=== PATIENT | male | born 1950 | race Caucasian/White ===

== ENCOUNTER → 2020-10-08 12:46 | Outpatient (BNVA) | payer SELFPAY | PROVIDERS: Family Provider Family Medicine; PCP Family Medicine; Visit Provider Internal Medicine Critical Care Medicine | DX: J44.9 Chronic obstructive pulmonary disease, unspecified (principal); F17.200 Nicotine dependence, unspecified, uncomplicated | CPT/HCPCS: 71046 ==

== ENCOUNTER → 2020-10-24 10:55 | Outpatient (BNVA) | payer SELFPAY | PROVIDERS: Family Provider Family Medicine; PCP Family Medicine; Visit Provider Internal Medicine Critical Care Medicine | DX: Z20.822 Contact with and (suspected) exposure to COVID-19 (principal); J44.9 Chronic obstructive pulmonary disease, unspecified | CPT/HCPCS: 87635 ==

== ENCOUNTER → 2021-12-17 12:40 | Outpatient (BNVA) | payer OTHER, SELFPAY | PROVIDERS: Family Provider Family Medicine; PCP Family Medicine; Visit Provider Internal Medicine Critical Care Medicine | DX: J44.9 Chronic obstructive pulmonary disease, unspecified (principal); R91.1 Solitary pulmonary nodule; F17.210 Nicotine dependence, cigarettes, uncomplicated | CPT/HCPCS: 99214 ==

== ENCOUNTER → 2022-05-12 10:07 | Outpatient (BNVA) | payer OTHER, SELFPAY | PROVIDERS: Family Provider Family Medicine; PCP Family Medicine; Visit Provider Internal Medicine Cardiovascular Disease | DX: R06.02 Shortness of breath (principal); J44.9 Chronic obstructive pulmonary disease, unspecified; N40.0 Benign prostatic hyperplasia without lower urinary tract symptoms; F17.210 Nicotine dependence, cigarettes, uncomplicated | CPT/HCPCS: 93005; 99204; Q3014 ==

== ENCOUNTER 2022-06-19 05:30 | Outpatient (CLI) | payer OTHER, SELFPAY ==
--- NOTE | 2022-06-19 | PETR_ITS ---
PROCEDURE INFORMATION: Exam: PET/CT Skull Base to Mid-thigh Exam date and time: 06/19/2022 10:23 AM Age: 72 years old Clinical indication: Abnormal findings of lung field LABS AND CLINICAL REPORTS: Glucose: 95 mg/dl Treatment strategy for malignancy (PET staging): Initial Staging (PI) TECHNIQUE: Imaging protocol: Following at least four-hour fasting and following the injection of F-18-FDG, low dose CT images were obtained. Then, PET images were obtained. Attenuation corrected images were constructed using the CT scan. Fused images of PET and CT were reviewed. The standardized uptake values (SUV) reported below are maximum values within a region of interest, expressed in gm/ml. Exam includes orbital meatal line to mid-thigh. Radiopharmaceutical: 11.43 mCi F-18 FDG (Fluorodeoxyglucose), IV. Time of imaging post radiopharmaceutical administration: 1 hour Injection site: Left antecubital COMPARISON: CR XR chest 2V* [id number] 10/08/2020 12:56 PM FINDINGS: Limitations: Motion artifact. Brain: Visualized brain has normal physiologic uptake. Salivary glands: Mild asymmetric uptake in the region of the inferior left parotid gland is noted without evidence of a discrete lesion, SUV max 4.9. Pharynx: Uptake within adenoidal tissue is elevated, SUV max 8.0, associated with mild prominence of the adenoidal tissue. Larynx: Physiologic appearing uptake within the region of the vocal cords. Lungs, pleura and trachea: Non radiotracer avid regions of streaky and mild patchy density in the posteroinferior right lower lobe is noted. A non radiotracer avid solid appearing lateral right lower lobe nodule measuring 6 mm on series 3, image 85 is noted. No definite additional nodules, with limitations of motion artifact.Mild moderate bilateral centrilobular emphysematous changes are present. Heart: Normal physiologic uptake. Mediastinal space: No abnormal uptake. Liver: No abnormal uptake. Gallbladder and bile ducts: No abnormal uptake. Pancreas: No abnormal uptake. Spleen: No abnormal uptake. Adrenal glands: No abnormal uptake. Kidneys and ureters: Normal physiologic uptake. A non radiotracer avid low-density lesion in the right renal inferior pole measures 1.2 cm on series 3, image 108, statistically consistent with a simple cyst. Stomach and bowel: There is elevated uptake in the region of the rectum, SUV max 4.7, likely physiologic. Reproductive: Moderate prominence of the prostate gland without elevated uptake. Mildly diffusely elevated testicular uptake, SUV max 4.6 on the right and 4.4 on the left. Vasculature: No abnormal uptake. There are diffuse atherosclerotic changes. Lymph nodes: A precarinal lymph node measuring 1.9 x 0.9 cm on series 3, image 61 demonstrates low-level activity, SUV max 2.7. A small focus of uptake in the right hilar region within a 9 mm lymph node is identified on PET series 4, image 63, SUV max 3.3. Bones/joints: No abnormal uptake in the visualized axial and appendicular skeleton. A mild non radiotracer avid compression fracture of T12 appears chronic. Soft tissues: Benign-appearing elevated uptake within the musculature of the anterior aspect of the cervical spine is noted without correlating lesions on the CT images. METRICS: Mediastinal blood pool: SUV max 1.8 Liver uptake: SUV max 2.2 PET/PET skulltothi INITIAL [id number] IMPRESSION: 1. Mild streaky density in the right lower lobe is consistent with atelectasis or scarring. A 6 mm nodular density is also noted without elevated uptake which favors a benign etiology. Assessment of small nodules can be limited by PET-CT. 2. Elevated uptake in the left parotid gland and within adenoidal tissue is noted, likely physiologic or related to infectious or inflammatory changes. 3. Mild uptake within a precarinal lymph node (SUV max 2.7) and a right hilar lymph node (SUV max 3.3) is noted which may be related to inflammatory or infectious involvement. A neoplastic etiology cannot be excluded. 4. Mildly elevated uptake in the testes is diffuse which may be related to orchitis. A neoplastic etiology is not favored. 5. Simple appearing right renal cyst. 6. Additional nonurgent findings as detailed above.
== END 2022-06-19 05:31 | disposition home or self-care (01) ==
LOC: RAD 06-21 05:31
PROVIDERS: PCP Family Medicine; Visit Provider Family Medicine
DX: R91.8 Other nonspecific abnormal finding of lung field (principal)
CPT/HCPCS: 78815; A9552

== ENCOUNTER 2022-07-09 08:26 | Outpatient (CLI) | payer OTHER, SELFPAY ==
[2022-07-09 09:19] VITALS: BMI 20.7
--- NOTE | 2022-07-09 09:24 | PC.NURSE ---
pt admitted to to having a couple sips of coffee this am. nurse informed pt to the possibility of not being able to complete test today due to not having the option to switch to lexiscan if pt does not hit target HR on treadmill. he acknolwdged understanding and stated he was here, might as well try
--- NOTE | 2022-07-09 10:47 | PC.NURSE ---
target not able to hit target HR. refer to previous note regarding why the test wasn't changed to lexsiscan. Dr alcaraz will be notified of situation and will follow up with pt.
--- NOTE | 2022-07-09 10:49 | PC.NURSE ---
pt stated the reason for stopping the test was due to the excessive sob and leg weakness.
== END 2022-07-09 08:27 | disposition home or self-care (01) ==
LOC: CDL 08:28
PROVIDERS: PCP Family Medicine; Visit Provider Internal Medicine Cardiovascular Disease
DX: R06.02 Shortness of breath (principal)
CPT/HCPCS: 36415

== ENCOUNTER 2022-09-20 06:44 | Outpatient (CLI) | payer OTHER, SELFPAY ==
[2022-09-20 06:48] VITALS: BMI 19.8
--- NOTE | 2022-09-20 07:47 | NMCV_ITS ---
NM al perf SPECT r/s* [id number] Star Rodríguez Age: 72 Gender: M : 1950 Exam Date: 09/20/2022 07:47 Ordering Phys: Saadia Castillo MD ([email or web address]) Technologist: BLANCHE Escobedo Exam Location: [facility] Indications: SHORTNESS OF BREATH STRESS TEST Please see separate stress test report in [facility] for full findings IMAGE PROTOCOL Rest/Stress 1 Lexiscan Day Radiopharmaceutical Dose (mCi) Administration Site Administered by Rest: Tc-99m 10.6 IV BLANCHE Holman Sestamibi Stress:Tc-99m 32.5 IV BLANCHE Holman Sestamibi Rest: 20-Sep-2022 60 Discovery 630 Stress: 20-Sep-2022 30 Discovery 630 0.4mg Lexiscan. Images obtained in supine and prone position. SPECT RESULTS Technical Quality: Excellent Raw Data Analysis: Normal Image Corrections: No attenuation or motion correction applied Summed Stress Score: 0 Summed Rest Score: 5 Summed Difference Score: 0 PERFUSION FINDINGS SPECT images demonstrate homogeneous tracer distribution throughout the myocardium on stress images. FUNCTIONAL RESULTS (calculated via Gated SPECT) Stress Image LV EF (%): 63 Stress EDV (mL):104 TID: 0.92 Stress ESV (mL):38 FUNCTIONAL FINDINGS: The left ventricle is normal in size. Transient Ischemia Dilatation of 0.92. The left ventricular ejection fraction is normal with a value of 63%. There is normal left ventricular wall thickening. IMPRESSIONS 1. Myocardial perfusion imaging is normal. Attenuation artifact noted in septal wall. 2. Overall left ventricular systolic function is normal without regional wall motion abnormalities, LVEF=63%. 3. No EKG changes with Lexiscan infusion. 4. Scan indicates low risk for cardiac events. Saadia Castillo MD (Electronically Signed) Final Date: 21 September 2022 12:41 S
--- NOTE | 2022-09-20 07:47 | ECG_ITS ---
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 Interpretive Statements NAME OF STUDY: LEXISCAN SESTAMIBI STRESS TEST INDICATION: Exertional shortness of Breath PROCEDURE: At the baseline, the blood pressure was 151/75mmHg with a heart rate of 52 bpm. The electrocardiogram showed sinus bradycardia, normal axis with possible old septal infarct. The Lexiscan was infused over a period of 20 seconds. A total of 0.4 milligrams of Lexiscan was infused. The stress phase was continued for a total of 5 minutes. Heart rate at the end of the stress phase was 85 bpm with a blood pressure 139/80 mmHg. The EKG at the peak infusion revealed no significant ST-T wave changes. Sestamibi was injected 20 seconds after the Lexiscan infusion. Blood pressure at the end of the recovery phase was 139/81 mmHg with a heart rate of 70 beats per minute. CONCLUSION: 1. No significant EKG changes with the LexiScan infusion. 2. No LexiScan induced chest pain or cardiac arrhythmia. 3. Normal blood pressure and heart rate response. 4. Sestamibi/sestamibi perfusion scan pending; see separate report. Electronically Signed On 09-20-2022 16:28:49 CDT by Saadia Castillo M.D. [email or web address]
[2022-09-20] MEDS: regadenoson 0.4 Mg/5 ml Syringe IVP (08:28)
[2022-09-20 08:45] VITALS: BP 139/81; PULSE 72
== END 2022-09-20 06:45 | disposition home or self-care (01) ==
LOC: CDL 06:45
PROVIDERS: PCP Family Medicine; Visit Provider Internal Medicine Cardiovascular Disease
DX: R06.02 Shortness of breath (principal)
CPT/HCPCS: 36415; 78452; 93017; 96374; A9500; J2785

== ENCOUNTER → 2022-10-20 09:30 | Outpatient (BNVA) | payer OTHER, SELFPAY | PROVIDERS: PCP Family Medicine; Visit Provider Internal Medicine Pulmonary Disease | DX: J22 Unspecified acute lower respiratory infection; J44.0 Chronic obstructive pulmonary disease with (acute) lower respiratory infection; F17.210 Nicotine dependence, cigarettes, uncomplicated; R91.8 Other nonspecific abnormal finding of lung field | CPT/HCPCS: 99214 ==

== ENCOUNTER → 2023-06-10 10:02 | Outpatient (BNVA) | payer OTHER, SELFPAY | PROVIDERS: PCP Family Medicine; Visit Provider Internal Medicine Pulmonary Disease | DX: J43.2 Centrilobular emphysema (principal); F17.200 Nicotine dependence, unspecified, uncomplicated; R93.89 Abnormal findings on diagnostic imaging of other specified body structures | CPT/HCPCS: 99214 ==

== ENCOUNTER 2023-07-12 16:45 | Outpatient (CLI) | payer OTHER, SELFPAY ==
--- NOTE | 2023-07-12 17:15 | CT_ITS ---
WS: [id number] CT chest wo con [id number] HISTORY: Follow up small pulmonary nodules TECHNIQUE: Axial imaging performed through the thorax. Coronal and sagittal reformats are submitted. All CT scans at [facility] use at least one of these dose optimization techniques: automated exposure control; mA and/or kV adjustment per patient size (includes targeted exams where dose is mat ched to clinical indication); or iterative reconstruction. CONTRAST: None DLP: 270.79 mGy.cm COMPARISON: 05/25/2022, 04/15/2022 Lungs and central airway: Marked pulmonary hyperexpansion with centrilobular emphysema. Biapical mild pleural thickening and scar formation. No pulmonary mass or nodule. Much better aeration at the lung bases as compared to the prior CT from 05/25/2022. Very mild atelectasis or bronchial wall thickening at the medial RIGHT lung base. Bilateral early changes of bronchiectasis. Pleura: Normal. No pleural effusion. Heart and pericardium: Negative. Mediastinum and usman: No adenopathy identified on this unenhanced exam. Lymph nodes which are difficu lt to exclude at the RIGHT hilar region. There is mild fullness at the RIGHT hilum. Vessels: Mild atherosclerosis aorta. Normal size pulmonary artery. Chest wall and lower neck: No soft tissue masses. Upper abdomen: Small retrocrural lymph nodes. Small hiatal hernia. 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 Cirrhotic liver. Osseous structures: Increase in thoracic kyphosis. IMPRESSION: 1. Chronic centrilobular emphysema. 2. Previously described opacifications and nodules at the lung bases have essentially resolved. Ther e is very minimal scarring or bronchial thickening in the medial RIGHT lower lobe. 3. Mild bilateral lower lobe bronchiectasis. 4. Adenopathy is difficult to exclude without contrast. 5. Small hiatal hernia.
== END 2023-07-12 16:46 | disposition home or self-care (01) ==
LOC: RAD 16:45
PROVIDERS: PCP Family Medicine; Visit Provider Internal Medicine Pulmonary Disease
DX: J43.2 Centrilobular emphysema (principal); J47.9 Bronchiectasis, uncomplicated; K44.9 Diaphragmatic hernia without obstruction or gangrene
CPT/HCPCS: 71250

== ENCOUNTER 2024-02-13 11:38 | Emergency (ER) | payer OTHER, SELFPAY ==
[2024-02-13 12:19] VITALS: BP 162/72; PULSE 84; RESP 19; TEMP 36.6; O2SAT 98; BMI 17.0
--- NOTE | 2024-02-13 13:06 | XR_ITS ---
WS: [id number] Exam: XR chest 1V portable [id number] Date/Time of Exam: 02/13/2024 1:06 PM Reason For Exam: Shortness of breath Compared to outside study performed 06/08/2021. The lungs are hyperinflated and clear. Normal cardiomediastinal silhouette. No pleural effusions. Dex troscoliosis of the lower T-spine and mild degenerative changes. Several old right-sided rib fracture s. XR/XR chest 1V portable [id number] IMPRESSION: 1. Pulmonary hyperinflation which may indicate COPD. No acute process.
[2024-02-13 14:01] LABS: Basophils # 0.1 10^3/uL (0.0-0.1); Basophils % 0.7 %; Eosinophils # 0.1 10^3/uL (0.0-0.8); Eosinophils % 0.7 %; Lymphocytes # 0.9 10^3/uL (0.8-4.8); Lymphocytes % 12.4 %; Mean Corpuscular HGB Conc 33.6 g/dL (30-55); Mean Corpuscular Hemoglobin 30.8 pg (27-33); Mean Corpuscular Volume 91.5 fl (82-101); Mean Platelet Volume 9.3 fL (7.4-10.4); Monocytes # 0.5 10^3/uL (0.2-0.9); Neutrophils # 5.95 10^3/uL (1.8-7.7); Neutrophils % 79.7 %; Nucleated Red Blood Cells % 0 %; Platelet Count 339 10^3/cmm (157-399); Red Blood Count 4.26 10^6/uL (3.85-5.65); Red Cell Distribution Width 12.9 % (12.1-15.1); White Blood Count 7.47 10^3/uL (3.29-11.43)
[2024-02-13 14:21] LABS: Troponin(5th) Baseline 21 ng/L (0-15)
[2024-02-13 14:30] LABS: Alanine Aminotransferase 12 U/L (0-41); Albumin Level 3.9 g/dL (3.5-5.2); Alkaline Phosphatase 83 U/L (40-130); Anion Gap 13.3 (5-19); Aspartate Amino Transferase 17 U/L (0-40); Blood Urea Nitrogen 14 mg/dL (8-23); Calcium 8.3 mg/dL (8.5-10.5); Carbon Dioxide 29 mmol/L (22-29); Chloride 97 mmol/L (98-107); Creatinine Clr Calc Pharmacy 59.0926; Glucose 110 mg/dL (65-115); NT Pro B Type Natriuretic Pept 54 pg/mL (0-125); Osmolality Calculated 281 mOsm/kg (285-295); Potassium 4.3 mmol/L (3.5-5.1); Sodium 135 mmol/L (136-145); Total Bilirubin 0.3 mg/dL (0.15-1.2); Total Protein 6.9 g/dL (6.6-8.7)
[2024-02-13 16:35] LABS: Troponin 5 2HR 19.59 ng/L (0-15)
[2024-02-13 16:36] LABS: Troponin 5 2HR Delta -1.41 ABS# (0-10)
== END 2024-02-13 16:43 | disposition left against medical advice (07) ==
PROVIDERS: Emergency Medicine; Emergency Provider Family Medicine; PCP Family Medicine
DX: Z53.21 Procedure and treatment not carried out due to patient leaving prior to being seen by health care provider (principal)
CPT/HCPCS: 36415; 71045; 80053; 83880; 84484; 85025; 99285